=== PATIENT | male | born 1980 | race Hispanic/Latino ===

== ENCOUNTER 2022-05-09 04:51 | Observation (INO) | payer SELFPAY ==
[~2022-05-09] VITALS: Ht 165.1 cm; Wt 132.9 kg
[2022-05-09] MEDS ORDERED: ASPIRIN 325 MG TAB PO ONE (06:00)
[2022-05-09] MEDS ORDERED: ACETAMINOPHEN 325 MG TAB PO ONE (06:00)
[2022-05-09] MEDS ORDERED: ASPIRIN 325 MG TAB ONE (07:00)
[2022-05-09] MEDS ORDERED: ACETAMINOPHEN 325 MG TAB ONE (07:00)
[2022-05-09] MEDS: AMLODIPINE BESYLATE 10 MG TAB PO SCH (07:14)
[2022-05-09] MEDS ORDERED: ONDANSETRON HCL INJ 2MG/ML 2ML 2 MG/ML VIAL IV PRN (08:00)
[2022-05-09] MEDS ORDERED: NITROGLYCERIN 0.4 MG SUBL SL PRN (08:00)
[2022-05-09] MEDS ORDERED: ASPIRIN 81 MG CHEW TAB PO ONE (08:00)
[2022-05-09] MEDS ORDERED: ONDANSETRON HCL INJ 2MG/ML 2ML 2 MG/ML VIAL IV STA (08:05)
[2022-05-09] MEDS ORDERED: Morphine 4mg INJECTION 4 MG/ML INJ IV ONE (08:15)
[2022-05-09 13:40] VITALS: BP 161/90
[2022-05-09 15:30] VITALS: BP 161/90
[2022-05-09 15:37] VITALS: BP 161/90
[2022-05-09 16:08] VITALS: BP 147/78
[2022-05-09] MEDS ORDERED: ACETAMINOPHEN 325 MG TAB PO PRN (18:00)
[2022-05-09 18:13] LABS: CREATINE KINASE 117 IU/L (30-200)
[2022-05-09 20:00] VITALS: BP 114/83
[2022-05-09 21:00] VITALS: BP 114/83
[2022-05-10] VITALS: BP 131/90
[2022-05-10 04:00] VITALS: BP 136/86
[2022-05-10 06:23] LABS: BASOPHILS % 0.4 % (0.0-1.0); EOSINOPHILS # (AUTO) 0.1 (0.0-0.4); EOSINOPHILS % 1.6 % (0.0-6.0); HEMATOCRIT 43.9 % (38.2-49.6); HEMOGLOBIN 14.7 g/dL (14.0-18.0); LYMPHOCYTES # (AUTO) 2.1 (1.0-3.2); LYMPHOCYTES % 29.9 % (18.0-39.1); MEAN CORPUSCULAR HEMOGLOBIN 28.9 pg (28-32); MEAN CORPUSCULAR HGB CONC 33.5 g/dL (31-35); MEAN CORPUSCULAR VOLUME 86.4 fL (81-99); MONOCYTES # (AUTO) 0.6 (0.2-0.8); MONOCYTES % 9.2 % (4.4-11.3); NEUTROPHILS # (AUTO) 4.1 (2.1-6.9); NEUTROPHILS % 58.5 % (38.7-80.0); PLATELET COUNT 302 x10e3/uL (140-360); RED BLOOD COUNT 5.08 x10e6/uL (4.3-5.7); RED CELL DISTRIBUTION WIDTH 13.6 % (11.7-14.4)
[2022-05-10 07:08] LABS: CALCIUM 8.3 mg/dL (8.4-10.2); CREATININE, SERUM 0.93 mg/dL (0.72-1.25)
[2022-05-10] MEDS ORDERED: PANTOPRAZOLE SOD 40 MG TABEC PO SCH (07:30)
[2022-05-10 07:59] VITALS: BP 122/82
[2022-05-10 08:03] VITALS: BP 122/82
[2022-05-10 08:07] LABS: CREATINE KINASE MB 0.7 ng/mL (0-5.0)
[2022-05-10] MEDS: AMLODIPINE BESYLATE 10 MG TAB PO SCH (08:26)
[2022-05-10 08:32] LABS: CHOL/HDL RATIO 5.2 (3.9-4.7)
[2022-05-10 11:42] VITALS: BP 155/93
== END 2022-05-10 12:53 | disposition home or self-care (01) ==
LOC: FSED 05:07 → ERHOLD 07:53 → MED/SURG3 13:37
DX: R07.89 Other chest pain (principal); I10 Essential (primary) hypertension; E66.01 Morbid (severe) obesity due to excess calories; Z72.89 Other problems related to lifestyle; D64.9 Anemia, unspecified; Z68.42 Body mass index [BMI] 45.0-49.9, adult; K21.9 Gastro-esophageal reflux disease without esophagitis; Z20.822 Contact with and (suspected) exposure to COVID-19
CPT/HCPCS: 0223U; 36415 ×2; 70450; 71046; 80048; 80053; 80061; 82550 ×2; 82553 ×2; 84484 ×2; 85025 ×2; 93005; 93306; 99284; G0378 ×2; S0164